=== PATIENT | female | born 1960 | race Caucasian/White ===

== ENCOUNTER → 2020-09-29 | Outpatient (CLI) | payer OTHER ==
[~2020-09-29] MED LIST: BACTRIM DS TAB1 EACH PO; BENTYL10 MG PO; CIPROFLOXACIN500 M1 PO; CLEOCIN HCL300 MG PO; DIOVAN HCT 1601 EAC1 PO; FLAGYL500 MG PO; HYDROCODON-ACE1 EAC7; HYDROCODON-ACE1 EAC8 PO; NORCO 5-325 TA1 EACH PO; ZOCOR 20 MG TAB20 M1 PO; ZOFRAN4 MG PO; ZYRTEC10 M2 PO
== END ==
LOC: CAT 07:52
PROVIDERS: ATTEND Family Medicine
DX: Z13.6 Encounter for screening for cardiovascular disorders (principal); I25.10 Atherosclerotic heart disease of native coronary artery without angina pectoris; E78.00 Pure hypercholesterolemia, unspecified

== ENCOUNTER → 2021-02-22 | Outpatient (CLI) | payer BC, OTHER | LOC: ULTRA 14:30 | PROVIDERS: ATTEND Nurse Practitioner | DX: R60.0 Localized edema (principal) ==